=== PATIENT | female | born 1975 | race African-American/Black ===

== ENCOUNTER 2018-04-26 21:19 | Emergency (ER) | payer OTHER ==
[2018-04-26 21:26] VITALS: BP 112/70; PULSE 70; TEMP 98.3; BMI 34.5
--- NOTE | 2018-04-26 21:58 | PDOC ---
History of Present Illness - General Stated Complaint: BACK PAIN Time Seen by Provider: 04/26/18 21:32 History Source: Patient - History of Present Illness Occurred: reports: other Severity: reports: moderate Pain Location: reports: back Past History - Past Medical History Allergies/Adverse Reactions: Allergies Allergy/AdvReac Type Severity Reaction Status Date / Time No Known Allergies Allergy Verified 04/26/18 21:26 Home Medications: Ambulatory Orders NK [No Known Home Medication] 04/26/18 Asthma: No Cancer: No Cardiac Disorders: No Diabetes: No HTN: No Seizures: No Thyroid Disease: No - Suicide/Smoking/Psychosocial Hx Smoking History: Never smoked Have you smoked in the past 12 months: No Information on smoking cessation initiated: No Hx Alcohol Use: No Drug/Substance Use Hx: No Hx Substance Use Treatment: No Review of Systems - Review of Systems Constitutional: No: Chills, Fever ABD/GI: No: Nausea, Vomiting, Abdominal cramping : No: Burning, Dysuria, Hematuria, Incontinence Neurological: No: Numbness, Tingling, Weakness *Physical Exam - Vital Signs Last Vital Signs Temp Pulse Resp BP Pulse Ox 98.3 F 70 18 112/70 99 04/26/18 21:22 04/26/18 21:22 04/26/18 21:22 04/26/18 21:22 04/26/18 21:22 - Physical Exam General Appearance: Yes: Appropriately Dressed. No: Apparent Distress HEENT: positive: Normal Voice Neck: positive: Supple Respiratory/Chest: negative: Respiratory Distress Gastrointestinal/Abdominal: positive: Soft. negative: Tender Musculoskeletal: negative: CVA Tenderness, Vertebral Tenderness Extremity: positive: Normal Inspection Integumentary: positive: Dry, Warm Neurologic: positive: Fully Oriented, Alert, Normal Mood/Affect Medical Decision Making - Medical Decision Making 04/26/18 21:48 43-year-old female, no significant history here with non-radiating lower back pain that started 2 weeks ago. Unable to describe pain, 7 out of 10 and worse with movement and relieved somewhat with motrin. No lower extremity weakness, saddle anesthesia, bowel or bladder incontinence, symptoms, fever or chills. Has had similar pain in the past that usually resolves at some point. No recent trauma. 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 See exam M/l MSK pain No trauma No red flags Declines pain meds -dc to take otc meds as needed and f/u with PMD 04/26/18 21:58 *DC/Admit/Observation/Transfer Diagnosis at time of Disposition: Back pain Qualifiers: Back pain location: low back pain Chronicity: acute Back pain laterality: bilateral Sciatica presence: without sciatica Qualified Code(s): M54.5 - Low back pain - Discharge Dispostion Disposition: HOME Condition at time of disposition: Good - Referrals - Patient Instructions Printed Discharge Instructions: Low Back Pain Additional Instructions: Take Motrin or Tylenol as needed for pain and follow-up with your primary care physician for further evaluation - Post Discharge Activity
--- NOTE | 2018-04-26 22:00 | PDOC ---
*Physical Exam - Vital Signs Last Vital Signs Temp Pulse Resp BP Pulse Ox 98.3 F 70 18 112/70 99 04/26/18 21:22 04/26/18 21:22 04/26/18 21:22 04/26/18 21:22 04/26/18 21:22 *DC/Admit/Observation/Transfer Diagnosis at time of Disposition: Back pain Qualifiers: Back pain location: low back pain Chronicity: acute Back pain laterality: bilateral Sciatica presence: without sciatica Qualified Code(s): M54.5 - Low back pain - Discharge Dispostion Disposition: HOME Condition at time of disposition: Good - Referrals - Patient Instructions Printed Discharge Instructions: Low Back Pain Additional Instructions: Take Motrin or Tylenol as needed for pain and follow-up with your primary care physician for further evaluation - Post Discharge Activity Forms/Work/School Notes: Back to Work
== END 2018-04-26 21:59 | disposition home or self-care (01) ==
LOC: JERFT 21:19
DX: M54.5 Low back pain (principal)
CPT/HCPCS: 99281-25

== ENCOUNTER 2021-03-22 20:40 | Emergency (ER) | payer OTHER ==
[2021-03-22 20:50] VITALS: BMI 34.0
[2021-03-22] MEDS ORDERED: SODIUM CHLORIDE 1,000 ML IV STA (22:06)
[2021-03-22] MEDS ORDERED: MECLIZINE HCL 25 MG TABLET (FP) PO ONE (22:06)
[2021-03-22] MEDS ORDERED: MECLIZINE HCL 25 MG TABLET (FP) ONE (22:28)
[2021-03-22 22:33] LABS: URINE APPEARANCE CLEAR; URINE BILIRUBIN NEGATIVE (NEGATIVE); URINE COLOR YELLOW; URINE GLUCOSE (UA) NEGATIVE (NEGATIVE); URINE KETONE NEGATIVE (NEGATIVE); URINE LEUK ESTERASE NEGATIVE (NEGATIVE); URINE NITRITE NEGATIVE (NEGATIVE); URINE PROTEIN NEGATIVE (NEGATIVE); URINE UROBILINOGEN 0.2 mg/dL (0.2-1.0)
[2021-03-22 22:36] LABS: HCG,QUALITATIVE URINE Negative
[2021-03-22 22:36] LABS: BASO % 0.7 % (0-2.0); EOS % 0.8 % (0-4.5); HEMATOCRIT 36.4 % (32.4-45.2); HEMOGLOBIN 12.5 GM/dL (10.7-15.3); LYMPH % 42.5 % (8-40); MCH 29.2 pg (25.7-33.7); MCHC 34.2 g/dl (32.0-36.0); MEAN CELL VOLUME 85.2 fl (80-96); MEAN PLT VOLUME 7.9 fl (7.5-11.1); MONO % 8.1 % (3.8-10.2); NEUT % 47.9 % (42.8-82.8); PLATELET COUNT 253 10^3/uL (134-434); RBC 4.27 M/mm3 (3.60-5.2); RDW 13.9 % (11.6-15.6); WHITE BLOOD COUNT 5.3 K/mm3 (4.0-10.0)
[2021-03-22 22:54] LABS: CHLORIDE 108 mmol/L (98-107); SODIUM 142 mmol/L (136-145)
[2021-03-22 22:57] LABS: GLUCOSE,RANDOM 90 mg/dL (74-106)
[2021-03-22 23:18] LABS: ALBUMIN 4.1 g/dl (3.4-5.0); ALK PHOS 77 U/L (45-117); ANION GAP 3 MMOL/L (8-16); BILIRUBIN,TOTAL 0.4 mg/dL (0.2-1); CALCIUM 9.5 mg/dL (8.5-10.1); CO2 31 mmol/L (21-32); CREATININE 0.6 mg/dL (0.55-1.3); SGOT/AST 20 U/L (15-37); SGPT/ALT 21 U/L (13-61); TOT PROT 7.4 g/dl (6.4-8.2)
[2021-03-22] MEDS ORDERED: ACETAMINOPHEN 1000 MG/100 ML VIAL (NON FORMULARY) IVPB ONE (23:44)
[2021-03-22] MEDS ORDERED: METOCLOPRAMIDE HCL INJECTION 10 MG/2 ML VIAL IVPUSH ONE (23:44)
[2021-03-22] MEDS ORDERED: ACETAMINOPHEN INJECTION 100 ML IVPB ONE (23:54)
[2021-03-22] MEDS ORDERED: METOCLOPRAMIDE HCL INJECTION 10 MG/2 ML VIAL ONE (23:54)
[2021-03-23 02:06] VITALS: BP 104/49; PULSE 52; TEMP 98.7
== END 2021-03-23 02:12 | disposition home or self-care (01) ==
LOC: JER 20:40
PROC: 3E033GC Introduction of Other Therapeutic Substance into Peripheral Vein, Percutaneous Approach (ICD-10-PCS; principal; 2021-03-22)
DX: R42 Dizziness and giddiness (principal); R51.9 Headache, unspecified
CPT/HCPCS: 36415; 70450-TC; 80053; 81003; 82550; 84484; 84703; 85025; 87086; 93005; 93010; 99285-25; J0131

== ENCOUNTER 2022-06-26 18:50 | Emergency (ER) | payer OTHER ==
[2022-06-26 19:27] VITALS: BP 124/84; PULSE 60; RESP 18; TEMP 97.9; BMI 33.6
[2022-06-26] MEDS ORDERED: SODIUM CHLORIDE 1,000 ML IV STA (20:06)
[2022-06-26] MEDS ORDERED: ACETAMINOPHEN 1000 MG/100 ML BAG IVPB ONE (20:07)
[2022-06-26] MEDS ORDERED: KETOROLAC TROMETHAMINE 30 MG/1 ML VIAL IM ONE (20:40)
[2022-06-26] MEDS ORDERED: LIDOCAINE 5% TOPICAL PATCH TP ONE (20:40)
[2022-06-26] MEDS ORDERED: LIDOCAINE 5% TOPICAL PATCH ONE (20:43)
[2022-06-26] MEDS ORDERED: KETOROLAC TROMETHAMINE 30 MG/1 ML VIAL ONE (20:43)
== END 2022-06-26 20:54 | disposition home or self-care (01) ==
LOC: JERFT 18:50
PROC: 3E0333Z Introduction of Anti-inflammatory into Peripheral Vein, Percutaneous Approach (ICD-10-PCS; principal; 2022-06-26)
PROC: 3E0233Z Introduction of Anti-inflammatory into Muscle, Percutaneous Approach (ICD-10-PCS; 2022-06-26)
DX: M25.511 Pain in right shoulder (principal); M54.50 Low back pain, unspecified
CPT/HCPCS: 99284-25

== ENCOUNTER 2024-01-24 21:19 | Emergency (ER) | payer OTHER ==
[2024-01-24 21:24] VITALS: BP 99/50; PULSE 71; RESP 18; TEMP 98.1; BMI 32.5
[2024-01-24] MEDS ORDERED: KETOROLAC TROMETHAMINE 30 MG/1 ML VIAL ONE (22:09)
[2024-01-24] MEDS ORDERED: LIDOCAINE 4% PATCH TP ONE (22:11)
[2024-01-24] MEDS: LIDOCAINE PATCH REMOVAL MC SCH (22:12)
[2024-01-24] MEDS: KETOROLAC TROMETHAMINE 30 MG/1 ML VIAL IM ONE (22:12)
[2024-01-24] MEDS: LIDOCAINE 5% TOPICAL PATCH TP ONE (22:19)
== END 2024-01-24 22:46 | disposition home or self-care (01) ==
LOC: JERFT 21:19
PROC: 3E0133Z Introduction of Anti-inflammatory into Subcutaneous Tissue, Percutaneous Approach (ICD-10-PCS; principal; 2024-01-24)
DX: M54.6 Pain in thoracic spine (principal)
CPT/HCPCS: 99284-25

== ENCOUNTER 2024-03-12 02:50 | Emergency (ER) | payer OTHER ==
[2024-03-12 03:11] VITALS: BP 114/87; PULSE 72; RESP 18; TEMP 98.6; BMI 32.5
[2024-03-12] MEDS ORDERED: MELATONIN 5 MG TABLETS ONE (03:57)
[2024-03-12] MEDS: MELATONIN 5 MG TABLETS PO ONE (03:59)
== END 2024-03-12 04:00 | disposition home or self-care (01) ==
LOC: JER 02:50
DX: G47.00 Insomnia, unspecified (principal)
CPT/HCPCS: 99283-25